=== PATIENT | female | born 2005 | race Caucasian/White ===

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

== ENCOUNTER 2024-12-09 11:50 | Inpatient (IN) | payer OTHER ==
[~2024-12-09] VITALS: Ht 162.6 cm; Wt 120.0 kg
[~2024-12-09 11:50] MED LIST: NICOTINE 14 MG/24 HR TRANSDERMAL TD SCH; PRED20TA PO
[2024-12-09 12:32] LABS: HEMATOCRIT 45.2 % (36.0-47.0); HEMOGLOBIN 15.6 g/dl (12.0-15.5); MEAN CORPUSCULAR HEMOGLOBIN 29.7 pg (27.0-33.0); MEAN CORPUSCULAR HGB CONC 34.5 g/dl (32.0-36.5); MEAN CORPUSCULAR VOLUME 85.9 fl (80.0-96.0); PLATELET COUNT, AUTOMATED 329 10^3/uL (150-450); RED BLOOD COUNT 5.26 10^6/uL (4.00-5.40); WHITE BLOOD COUNT 8.5 10^3/uL (4.0-10.0)
[2024-12-09 13:06] LABS: ETHYL ALCOHOL (ETHANOL) < 0.003 % (0.000-0.010)
[2024-12-09 13:07] LABS: SALICYLATE LEVEL < 3.0 MG/DL (<30)
[2024-12-09 13:08] LABS: ALBUMIN 3.9 G/DL (3.2-5.2); ALKALINE PHOSPHATASE 80 U/L (35-104); ALT/SGPT 21 U/L (7.0-40); AST/SGOT 14 U/L (<34); BILIRUBIN,DIRECT 0.1 MG/DL (<0.4); BILIRUBIN,TOTAL 0.5 MG/DL (0.3-1.2); BLOOD UREA NITROGEN 12 MG/DL (9-23); CALCIUM LEVEL 9.3 MG/DL (8.5-10.1); CARBON DIOXIDE LEVEL 24 MMOL/L (20-31); CHLORIDE LEVEL 109 MMOL/L (98-107); CREATININE FOR GFR 0.51 MG/DL (0.55-1.30); GLOMERULAR FILTRATION RATE > 60.0 (>60); GLUCOSE, FASTING 95 MG/DL (60-100); POTASSIUM SERUM 4.3 MMOL/L (3.5-5.1); SODIUM LEVEL 142 MMOL/L (136-145)
[2024-12-09 14:31] LABS: AMPHETAMINES LEVEL URINE NEGATIVE (NEGATIVE)
[2024-12-09 14:32] LABS: BARBITURATES URINE NEGATIVE (NEGATIVE); BENZODIAZEPINES URINE NEGATIVE (NEGATIVE)
[2024-12-09 14:33] LABS: CANNABINOIDS URINE NEGATIVE (NEGATIVE); COCAINE METABOLITE URINE NEGATIVE (NEGATIVE); METHADONE URINE NEGATIVE (NEGATIVE); OPIATES URINE NEGATIVE (NEGATIVE); PHENCYCLIDINE URINE NEGATIVE (NEGATIVE)
[2024-12-09 14:47] LABS: HCG, SERUM QUALITATIVE NEGATIVE (NEGATIVE)
[2024-12-09] MEDS ORDERED: BUSP5TA PO (16:12)
[2024-12-09] MEDS ORDERED: ZOLO100T PO (16:12)
[2024-12-09] MEDS ORDERED: HOME MED LIST COMPLETE! XX SCH (16:15)
[2024-12-09 17:18] VITALS: BP 112/70; TEMP 97.2; O2SAT 98
[2024-12-09] MEDS ORDERED: ACETAMINOPHEN 325 MG TAB PO PRN (18:50)
[2024-12-09] MEDS ORDERED: MOM 30ML SUSPENSION UDC PO PRN (18:50)
[2024-12-09] MEDS ORDERED: diphenhydrAMINE 25MG CAP PO PRN (18:50)
[2024-12-09] MEDS ORDERED: IBUPROFEN 400MG TAB PO PRN (18:50)
[2024-12-09] MEDS ORDERED: MAALOX 30 ML SUSP *UDC PO PRN (18:50)
[2024-12-09] MEDS: LORazepam 1 MG TAB PO PRN (20:53)
[2024-12-09] MEDS: traZODone 50 MG TAB PO PRN (20:54)
[2024-12-09] MEDS: OLANZapine ORAL DISINTEGRATING TAB 5MG PO PRN (20:54)
[2024-12-10 06:24] VITALS: BP 130/74; TEMP 97.3; O2SAT 98
[2024-12-10] MEDS: SERTRALINE 100 MG TAB PO ONE (14:03)
[2024-12-10 15:03] VITALS: BP 116/69; TEMP 97; O2SAT 100
[2024-12-10] MEDS: busPIRone 5 MG TAB PO SCH (15:15)
[2024-12-11 06:28] VITALS: BP 116/69; TEMP 97.3; O2SAT 99
[2024-12-11] MEDS: SERTRALINE HCL 50 MG TAB PO SCH (08:20)
[2024-12-11] MEDS ORDERED: SERT-141 PO (13:17)
[2024-12-11] MEDS ORDERED: BUSP5TA PO (13:17)
[2024-12-11 15:27] VITALS: BP 122/68; TEMP 97; O2SAT 99
[2024-12-12 06:29] VITALS: BP 122/72; TEMP 97.1; O2SAT 99
== END 2024-12-12 10:54 | disposition home or self-care (01) | DRG 881 ==
LOC: M ED 11:50 → M ED INP 15:36 → M PSY 16:50
PROVIDERS: ADMIT Psychiatry & Neurology Psychiatry; ATTEND Psychiatry & Neurology Psychiatry
DX: F32.A Depression, unspecified (principal); R45.851 Suicidal ideations; F41.8 Other specified anxiety disorders; F90.9 Attention-deficit hyperactivity disorder, unspecified type; Z56.6 Other physical and mental strain related to work; Z79.899 Other long term (current) drug therapy